=== PATIENT | male | born 1960 | race Caucasian/White ===

== ENCOUNTER 2018-02-04 17:47 | Emergency (ER) | payer OTHER ==
[~2018-02-04] VITALS: Ht 177.8 cm; Wt 86.2 kg
[2018-02-04 18:20] VITALS: Ht 177.8 cm; Wt 86.2 kg
[2018-02-04 19:37] VITALS: BP 147/99
== END 2018-02-04 19:37 | disposition home or self-care (01) ==
LOC: ED 17:47
DX: S49.92XA Unspecified injury of left shoulder and upper arm, initial encounter (principal); S50.12XA Contusion of left forearm, initial encounter; M79.642 Pain in left hand; V43.52XA Car driver injured in collision with other type car in traffic accident, initial encounter; Y93.I9 Activity, other involving external motion; Y92.488 Other paved roadways as the place of occurrence of the external cause; Y99.8 Other external cause status
CPT/HCPCS: 90715